=== PATIENT | male | born 1940 | race Caucasian/White ===

== ENCOUNTER → 2017-03-15 | Outpatient (CLI) | payer MEDICARE ==
[2015-10-26 11:36] VITALS: BP 140/77
[~2017-03-15] MED LIST: APIX5TAB PO; DRON400T PO; HYDR12.58 PO; METO25TA4 PO; MULT1TAB52 PO; TAMS0.4C2 PO
--- NOTE | 2017-03-15 11:34 | KCIC ---
Complete abdominal ultrasound dated 03/15/2017. No comparison available. Clinical indication: Pain and elevated liver function test. FINDINGS: Liver appears enlarged and is of increased echogenicity. No apparent hepatic mass. Intrahepatic biliary tree is normal in caliber. Common bile duct measures 5 mm. There are echogenic shadowing foci within the gallbladder lumen, some of which extend in the gallbladder neck. No significant gallbladder wall thickening or pericholecystic fluid. Right kidney measures 13.4 cm in length. Left kidney measures 13.4 cm in length. No hydronephrosis. Spleen is homogeneous in echogenicity and measures 14 cm longitudinal dimension. There are splenic granuloma. Limited visualized portions of pancreas aorta and IVC unremarkable. No significant ascites. IMPRESSION: 1. Cholelithiasis with no secondary signs of acute cholecystitis. 2. Mild hepatosplenomegaly. 3. Hepatic steatosis. Electronically signed by: Antoni Olivier MD (03/15/2017 11:30 AM) [facility]
== END | disposition home or self-care (01) ==
LOC: KCIC US 10:07
PROVIDERS: ATTEND Family Medicine
DX: K80.20 Calculus of gallbladder without cholecystitis without obstruction (principal); K76.0 Fatty (change of) liver, not elsewhere classified; R16.2 Hepatomegaly with splenomegaly, not elsewhere classified; R79.89 Other specified abnormal findings of blood chemistry
CPT/HCPCS: 76700

== ENCOUNTER → 2017-09-25 | Outpatient (CLI) | payer MEDICARE | END | disposition home or self-care (01) | LOC: PMGWOUND 10:52 | DX: I87.312 Chronic venous hypertension (idiopathic) with ulcer of left lower extremity (principal); L97.322 Non-pressure chronic ulcer of left ankle with fat layer exposed; L97.221 Non-pressure chronic ulcer of left calf limited to breakdown of skin; I48.0 Paroxysmal atrial fibrillation; E78.5 Hyperlipidemia, unspecified; Z85.46 Personal history of malignant neoplasm of prostate | CPT/HCPCS: 29581; 73610 ==

== ENCOUNTER → 2017-09-28 | Outpatient (CLI) | payer MEDICARE | END | disposition home or self-care (01) | LOC: PMGWOUND 12:06 | DX: I87.312 Chronic venous hypertension (idiopathic) with ulcer of left lower extremity (principal); L97.322 Non-pressure chronic ulcer of left ankle with fat layer exposed; E78.5 Hyperlipidemia, unspecified; I48.0 Paroxysmal atrial fibrillation; Z85.46 Personal history of malignant neoplasm of prostate | CPT/HCPCS: 29581 ==

== ENCOUNTER → 2017-10-04 | Outpatient (CLI) | payer MEDICARE | END | disposition home or self-care (01) | LOC: PMGWOUND 11:18 | DX: I87.312 Chronic venous hypertension (idiopathic) with ulcer of left lower extremity (principal); L97.322 Non-pressure chronic ulcer of left ankle with fat layer exposed; L97.221 Non-pressure chronic ulcer of left calf limited to breakdown of skin; E78.5 Hyperlipidemia, unspecified; I48.0 Paroxysmal atrial fibrillation; Z85.46 Personal history of malignant neoplasm of prostate | CPT/HCPCS: 29581 ==

== ENCOUNTER → 2017-10-11 | Outpatient (CLI) | payer MEDICARE | END | disposition home or self-care (01) | LOC: PMGWOUND 11:22 | DX: I87.312 Chronic venous hypertension (idiopathic) with ulcer of left lower extremity (principal); L97.322 Non-pressure chronic ulcer of left ankle with fat layer exposed; L97.221 Non-pressure chronic ulcer of left calf limited to breakdown of skin; E78.5 Hyperlipidemia, unspecified; I48.0 Paroxysmal atrial fibrillation; Z85.46 Personal history of malignant neoplasm of prostate | CPT/HCPCS: 99214 ==

== ENCOUNTER → 2017-10-18 | Outpatient (CLI) | payer MEDICARE | END | disposition home or self-care (01) | LOC: PMGWOUND 10:25 | DX: I87.312 Chronic venous hypertension (idiopathic) with ulcer of left lower extremity (principal); L97.322 Non-pressure chronic ulcer of left ankle with fat layer exposed; L97.221 Non-pressure chronic ulcer of left calf limited to breakdown of skin; E78.5 Hyperlipidemia, unspecified; I48.0 Paroxysmal atrial fibrillation; Z85.46 Personal history of malignant neoplasm of prostate | CPT/HCPCS: 99214 ==

== ENCOUNTER → 2017-10-25 | Outpatient (CLI) | payer MEDICARE | END | disposition home or self-care (01) | LOC: PMGWOUND 08:18 | DX: I87.312 Chronic venous hypertension (idiopathic) with ulcer of left lower extremity (principal); L97.322 Non-pressure chronic ulcer of left ankle with fat layer exposed; E78.5 Hyperlipidemia, unspecified; I48.0 Paroxysmal atrial fibrillation; Z85.46 Personal history of malignant neoplasm of prostate | CPT/HCPCS: 99214 ==

== ENCOUNTER → 2017-11-01 | Outpatient (CLI) | payer MEDICARE | END | disposition home or self-care (01) | LOC: PMGWOUND 08:55 | DX: I87.312 Chronic venous hypertension (idiopathic) with ulcer of left lower extremity (principal); L97.322 Non-pressure chronic ulcer of left ankle with fat layer exposed; L97.221 Non-pressure chronic ulcer of left calf limited to breakdown of skin; E78.5 Hyperlipidemia, unspecified; I48.0 Paroxysmal atrial fibrillation; Z85.46 Personal history of malignant neoplasm of prostate | CPT/HCPCS: 99214 ==

== ENCOUNTER → 2017-11-08 | Outpatient (CLI) | payer MEDICARE | END | disposition home or self-care (01) | LOC: PMGWOUND 09:56 | DX: I87.312 Chronic venous hypertension (idiopathic) with ulcer of left lower extremity (principal); L97.322 Non-pressure chronic ulcer of left ankle with fat layer exposed; L97.221 Non-pressure chronic ulcer of left calf limited to breakdown of skin; I10 Essential (primary) hypertension; I48.0 Paroxysmal atrial fibrillation; E78.5 Hyperlipidemia, unspecified; Z85.46 Personal history of malignant neoplasm of prostate | CPT/HCPCS: 99214 ==

== ENCOUNTER → 2018-01-16 | Outpatient (CLI) | payer MEDICARE ==
[2015-10-26 11:36] VITALS: BP 140/77
[~2018-01-16] MED LIST changes: +CONTRAST GIVEN. MC PRN; +IOHEXOL 300 MG/ML 100ML VIAL. IV ONE; +IOHEXOL 300 MG/ML 50 ML VIAL. IV ONE
--- NOTE | 2018-01-16 15:28 | KCIC ---
CT CHEST W/CONTRAST, CT HEAD WO/W CONTRAST, CT SOFT TISSUE NECK W/CONTRAST Indication: Vocal cord paralysis progressed to 6 months. Exposure: One or more of the following individualized dose reduction techniques were utilized for this examination: 1. Automated exposure control 2. Adjustment of the mA and/or kV according to patient size 3. Use of iterative reconstruction technique. Comparison: None are available. Contrast:Intravenous contrast was administered. Precontrast images were obtained through the head. Postcontrast images through the head, neck and chest HEAD: Posterior fossa is unremarkable. No evidence of acute intracranial hemorrhage or abnormal extra-axial fluid collection. No evidence of mass effect or midline shift. Low-density in the white matter bilaterally, a nonspecific finding, but which is commonly due to chronic small vessel ischemic disease in a patient of this age. Prominence of ventricles and sulci, compatible with involutional change or atrophy. Intracranial arterial calcifications are identified. Visualized orbits are unremarkable. Visualized paranasal sinuses and mastoids are clear. No acute calvarial abnormality. Impression:Chronic findings as detailed above. Negative for acute intracranial hemorrhage or mass effect. NECK: Visualized sinuses: Minimal mucosal thickening of the inferior maxillary sinuses. Visualized orbits: Unremarkable Vessels: Atherosclerotic calcifications. Parotid glands: Unremarkable Submandibular glands: Unremarkable Airway: Patent and midline Parapharyngeal tissues: Symmetric and unremarkable Larynx: Mild asymmetry of the vocal cords Lymph nodes: No pathologic enlargement Thyroid: Symmetric Upper thorax: Lungs are clear Soft tissues: Unremarkable Mandible/maxilla: Unremarkable Cervical spine: Degenerative spondylosis. Impression: Mild vocal cord asymmetry, could indicate paralysis. No evidence of mass lesion. CHEST: Thoracic aorta: Pulsatility artifact at the ascending aorta. No evidence of aneurysm. Mild calcifications and tortuosity. Great vessel origins: Mild calcification Pulmonary arteries:Main central arteries appear patent. Thyroid gland:Visualized aspect is unremarkable. Lymph nodes:No significant enlargement Heart: Mild coronary calcifications. Esophagus: Unremarkable Pleural spaces: No significant effusion Lungs: Small subpleural noncalcified nodule at the anterior inferior right upper lobe measures 7 mm. Trachea and central airways: Patent Spine: Degenerative spondylosis. Minimal loss of height of the superior endplate of an upper thoracic vertebral body, approximately T5. This may represent a very mild fracture, likely chronic. Bones: No destructive process. Upper abdomen: Cholelithiasis. Small hypodense lesion of the liver measures 12 mm, measures 1 Hounsfield unit, probably a cyst. Impression: 1. Small subpleural noncalcified nodule at the anterior right upper lobe.. As per Fleischner Society criteria, recommend follow-up CT chest in 6 months. 2. Cholelithiasis. Electronically signed by: Antoni Claros MD (01/16/2018 3:24 PM) [facility]
== END | disposition home or self-care (01) ==
LOC: KCIC CT 12:45
PROVIDERS: ATTEND Otolaryngology
DX: K80.20 Calculus of gallbladder without cholecystitis without obstruction (principal); K76.9 Liver disease, unspecified; R91.1 Solitary pulmonary nodule; M47.893 Other spondylosis, cervicothoracic region; J38.00 Paralysis of vocal cords and larynx, unspecified; I25.10 Atherosclerotic heart disease of native coronary artery without angina pectoris; I10 Essential (primary) hypertension; E78.5 Hyperlipidemia, unspecified; Z87.891 Personal history of nicotine dependence
CPT/HCPCS: 70470; 70491; 71260; 82565; Q9967

== ENCOUNTER → 2018-02-21 | Outpatient (CLI) | payer MEDICARE ==
[2015-10-26 11:36] VITALS: BP 140/77
[~2018-02-21] MED LIST changes: +BARIUM SULFATE 40% (APPLE) 148 GM PWD. PO ONE; -CONTRAST GIVEN. MC PRN; -IOHEXOL 300 MG/ML 100ML VIAL. IV ONE; -IOHEXOL 300 MG/ML 50 ML VIAL. IV ONE
--- NOTE | 2018-02-21 13:33 | RAD ---
Video dysphasia study, 02/21/2018: History: Dysphagia, vocal cord paralysis The swallowing mechanism was examined fluoroscopically in the lateral projection while the patient ingested a variety of food materials mixed with barium. 1.1 minute of fluoroscopy time was utilized. One video fluoroscopic loop was recorded by a member of the speech Department. The patient demonstrated good oral control of the barium materials. There was prompt initiation of pharyngeal peristalsis. There was normal passage of the majority of the barium bolus through the cervical esophagus. There is no evidence of laryngeal penetration or aspiration with the thin materials, the thicker materials were the barium coated solids. The patient utilized a straw without difficulty. IMPRESSION: No significant abnormality is detected.
== END | disposition home or self-care (01) ==
LOC: RAD 12:59
PROVIDERS: ATTEND Otolaryngology
DX: J38.00 Paralysis of vocal cords and larynx, unspecified (principal); R13.19 Other dysphagia; R49.0 Dysphonia; Z79.899 Other long term (current) drug therapy
CPT/HCPCS: 74230; 92611

== ENCOUNTER → 2018-03-01 | Outpatient (CLI) | payer MEDICARE ==
[2015-10-26 11:36] VITALS: BP 140/77
[~2018-03-01] MED LIST changes: -BARIUM SULFATE 40% (APPLE) 148 GM PWD. PO ONE
--- NOTE | 2018-03-01 10:39 | CARD ---
MR#: [id number] Date of Study: 03/01/2018 Ordering Physician: ESTUARDO HOOVER, Referring Physician: ESTUARDO HOOVER, Tech: Sabi Choe [facility] APPROVED REPORT EXAM: Two-dimensional and M-mode echocardiogram with Doppler and color Doppler. Other Information Quality : GoodHR: 70bpm Rhythm : Atrial Fibrillation INDICATION Arrhythmia 2D DIMENSIONS RVDd3.5 (2.9-3.5cm)Left Atrium(2D)5.0 (1.6-4.0cm) IVSd1.5 (0.7-1.1cm)Aortic Root(2D)4.0 (2.0-3.7cm) LVDd5.2 (3.9-5.9cm)LVOT Diameter2.3 (1.8-2.4cm) PWd0.9 (0.7-1.1cm)LVDs3.4 (2.5-4.0cm) FS (%) 35.7 %SV85.2 ml M-Mode DIMENSIONS Left Atrium(MM)4.54 (2.5-4.0cm)Aortic Root4.50 (2.2-3.7cm) Aortic Valve AoV Peak Flash.117.3cm/sAoV VTI24.4cm AO Peak GR.5.5mmHgLVOT Peak Flash.105.1cm/s AO Mean GR.3mmHgAVA (VMAX)3.87cm2 Mitral Valve MV E Lpxdbahk235.4cm/sMV E Peak Gr.7mmHg MV DECEL [id number] A Vlbvgwsp84.8cm/s MV E Mean Gr.2mmHgE/A Ratio2.8 MV A [id number] Planimetry3.90cm2 Pulmonary Valve PV Peak Dmovuzzz07.5cm/s Tricuspid Valve TR P. Pymtehrb090qa/sRAP QMWWUUVM7ulUs TR Peak Gr.48bbFzBGDR61sxUb Pulmonary Vein S1 Twovpwjk66.2cm/sD2 Dxikagyj99.3cm/s LEFT VENTRICLE The left ventricle is normal size. There is mild concentric left ventricular hypertrophy. The left ve ntricular systolic function is normal and the ejection fraction is within normal range. The Ejection Fraction is 60-65%. There is normal LV segmental wall motion. Transmitral Doppler flow pattern is Gra de II-reversible restrictive diastolic dysfunction. RIGHT VENTRICLE The right ventricle is borderline dilated. There is normal right ventricular wall thickness. The righ t ventricular systolic function is normal. ATRIA The left atrium is mildly dilated. The right atrium is mildly dilated. The interatrial septum is inta ct with no evidence for an atrial septal defect or patent foramen ovale as noted on 2-D or Doppler im aging. AORTIC VALVE The aortic valve is mildly thickened. Doppler and Color Flow revealed trace aortic regurgitation. The re is no significant aortic valvular stenosis. MITRAL VALVE The mitral valve is mildly thickened. There is no evidence of mitral valve prolapse. There is no mitr al valve stenosis. Doppler and Color-flow revealed mild mitral regurgitation. TRICUSPID VALVE The tricuspid valve is normal in structure and function. Doppler and Color Flow revealed mild tricusp id regurgitation. The PA pressure was estimated at 38 mmHg. There is no tricuspid valve prolapse or v egetation. There is no tricuspid valve stenosis. PULMONIC VALVE The pulmonary valve is normal in structure and function. Doppler and Color Flow revealed trace pulmon ic valvular regurgitation. There is no pulmonic valvular stenosis. GREAT VESSELS The aortic root is mildly enlarged. The ascending aorta is mildly dilated. PERICARDIAL EFFUSION There is no evidence of significant pericardial effusion. Critical Notification Critical Value: No <Conclusion> The left ventricle is normal size. The left ventricular systolic function is normal and the ejection fraction is within normal range. The Ejection Fraction is 60-65%. There is mild concentric left ventricular hypertrophy. There is no significant aortic valvular stenosis. Doppler and Color Flow revealed trace aortic regurgitation. Doppler and Color-flow revealed mild mitral regurgitation. Doppler and Color Flow revealed mild tricuspid regurgitation. The PA pressure was estimated at 38 mmHg. Signed by : Ag Abebe MD Electronically Approved : 03/01/2018 10:38:26
== END | disposition home or self-care (01) ==
LOC: ECHO 09:15
PROVIDERS: ATTEND Internal Medicine Cardiovascular Disease
DX: I08.1 Rheumatic disorders of both mitral and tricuspid valves (principal); I10 Essential (primary) hypertension; E78.5 Hyperlipidemia, unspecified; I25.10 Atherosclerotic heart disease of native coronary artery without angina pectoris; Z87.891 Personal history of nicotine dependence; Z85.46 Personal history of malignant neoplasm of prostate
CPT/HCPCS: 93306

== ENCOUNTER → 2019-12-15 | Outpatient (CLI) | payer MEDICARE ==
[2015-10-26 11:36] VITALS: BP 140/77
[~2019-12-15] MED LIST changes: +MULT-445 PO; -MULT1TAB52 PO
--- NOTE | 2019-12-15 12:23 | CARD ---
MR#: [id number] Date of Study: 12/15/2019 Ordering Physician: ESTUARDO HOOVER, Referring Physician: ESTUARDO HOOVER, Tech: Bianca Valle [facility] APPROVED REPORT EXAM: Two-dimensional and M-mode echocardiogram with Doppler and color Doppler. Other Information Quality : Fair INDICATION Paroxysmal Atrial Fibrillation 2D DIMENSIONS RVDd3.1 (2.9-3.5cm)Left Atrium(2D)4.3 (1.6-4.0cm) IVSd1.5 (0.7-1.1cm)Aortic Root(2D)3.5 (2.0-3.7cm) LVDd4.0 (3.9-5.9cm)LVOT Diameter2.4 (1.8-2.4cm) PWd1.3 (0.7-1.1cm)LVDs2.6 (2.5-4.0cm) FS (%) 30.0 %SV48.1 ml LVEF(%)60.0 (>50%) Aortic Valve AoV Peak Flash.85.8cm/sAoV VTI15.1cm AO Peak GR.2.9mmHgLVOT Peak Flash.90.0cm/s AO Mean GR.2mmHgAVA (VMAX)4.61cm2 ALEXANDRA (VTI)4.80cm2 Tricuspid Valve TR P. Unojluzh328vz/sRAP YOQMDSLF7dcUs TR Peak Gr.67aeSnQWGF00sqCe Pulmonary Vein S1 Iqtklnok92.7cm/sD2 Fpqpvrti02.9cm/s LEFT VENTRICLE The left ventricle is normal size. There is mild concentric left ventricular hypertrophy. The left ve ntricular systolic function is normal. The Ejection Fraction is 55-60%. There is normal LV segmental wall motion. RIGHT VENTRICLE The right ventricle is normal size. The right ventricular systolic function is normal. ATRIA The left atrium is mildly dilated. The right atrium size is normal. The interatrial septum is intact with no evidence for an atrial septal defect or patent foramen ovale as noted on 2-D or Doppler imagi ng. AORTIC VALVE The aortic valve is not well visualized but appears to be functioning normally by Doppler interrogati on. Doppler and Color Flow revealed no significant aortic regurgitation. There is no significant aort ic valvular stenosis. MITRAL VALVE The mitral valve is calcified but opens well. Mitral annular calcification is mild. There is no evide nce of mitral valve prolapse. There is no mitral valve stenosis. Doppler and Color-flow revealed trac e mitral regurgitation. TRICUSPID VALVE The tricuspid valve is normal in structure and function. Doppler and Color Flow revealed mild tricusp id regurgitation. There is moderate pulmonary hypertension. The PA pressure was estimated at 46 mmHg. There is no tricuspid valve stenosis. PULMONIC VALVE The pulmonic valve is not well visualized. Doppler and Color Flow revealed trace pulmonic valvular re gurgitation. There is no pulmonic valvular stenosis. GREAT VESSELS The aortic root is normal in size. The ascending aorta is mildly dilated at 3.7 cm. The IVC is normal in size and collapses >50% with inspiration. PERICARDIAL EFFUSION There is no evidence of significant pericardial effusion. Critical Notification Critical Value: No <Conclusion> The left ventricular systolic function is normal. The Ejection Fraction is 55-60%. There is normal LV segmental wall motion. The left atrium is mildly dilated. Trace mitral regurgitation. Mild tricuspid regurgitation. The PA pressure was estimated at 46 mmHg. There is no evidence of significant pericardial effusion. Signed by : Axel Gayle, Electronically Approved : 12/15/2019 12:22:33
== END | disposition home or self-care (01) ==
LOC: ECHO 10:41
PROVIDERS: ATTEND Internal Medicine Cardiovascular Disease
DX: I08.1 Rheumatic disorders of both mitral and tricuspid valves (principal); I48.0 Paroxysmal atrial fibrillation; I27.20 Pulmonary hypertension, unspecified
CPT/HCPCS: 93306